=== PATIENT | female | born 1970 | race Caucasian/White ===

== ENCOUNTER 2017-06-16 17:07 | Emergency (ER) | payer OTHER ==
[~2017-06-16] VITALS: Ht 167.6 cm; Wt 86.4 kg
[2017-06-16 18:14] VITALS: BP 135/94
--- NOTE | 2017-06-16 20:06 | NUR ---
Patient ambulated to bed 7. RN evaluating patient at bedside.
--- NOTE | 2017-06-16 20:10 | NUR ---
PT HAS ABCESS ON LEFT BREAST SINCE LAST TUESDAY THAT HAS STARTED DRAINING OF THIS AFTERNOON. PT HAS HX OF HAVING ABCESSES PT DENIES N/V/D; AAOX4 WITH EVEN AND STEADY GAIT; LUNGS CLEAR BL; HR EVEN AND REGULAR; PT DENIES ANY FEVER, CP, SOB, OR COUGH AT THIS TIME; PATIENT STATES PAIN OF 0/10 AT THIS TIME; VSS; PATIENT POSITIONED FOR COMFORT; HOB ELEVATED; BEDRAILS UP X2; BED DOWN. ER MD MADE AWARE OF PT STATUS.
--- NOTE | 2017-06-16 20:29 | NUR ---
Dr. Artis evaluating patient at bedside.
[2017-06-16] MEDS ORDERED: LIDOCAINE 1% 500 MG/50 ML VIAL INJ ONE (20:45)
--- NOTE | 2017-06-16 20:48 | NUR ---
Dr. Artis at bedside for incision and drainage of abscess.
[2017-06-16] MEDS ORDERED: NEOMYCIN/POLYMYXIN/BACITRACIN 0.9 GM/1 PKT TP ONE (20:57)
[2017-06-16] MEDS ORDERED: cefTRIAXone 1,000 MG in LIDOCAINE 1% ED 2.1 ML IM ONE (21:00)
--- NOTE | 2017-06-16 21:03 | NUR ---
Female chaperoned for Dr. Artis during I&D of abscess
[2017-06-16 21:15] VITALS: BP 135/94
--- NOTE | 2017-06-16 21:15 | NUR ---
Patient discharged with v/s stable. Written and verbal after care instructions given and explained. Patient alert, oriented and verbalized understanding of instructions. Ambulatory with steady gait. All questions addressed prior to discharge. ID band removed. Patient advised to follow up with PMD. Rx of MOTRIN, KEFLEX AND CLINDAMYCIN given. Patient educated on indication of medication including possible reaction and side effects. Opportunity to ask questions provided and answered.
== END 2017-06-16 21:15 | disposition home or self-care (01) ==
LOC: MED 17:07
DX: N61.1 Abscess of the breast and nipple (principal); R03.0 Elevated blood-pressure reading, without diagnosis of hypertension
CPT/HCPCS: 10060; 96372; 99283; J0696; J2001